=== PATIENT | female | born 1970 | race Caucasian/White ===

== ENCOUNTER 2017-12-09 18:48 | Emergency (ER) | payer OTHER ==
[~2017-12-09] VITALS: Ht 170.2 cm; Wt 129.8 kg
[~2017-12-09 18:48] MED LIST: ALBUTEROL SUL0.083 % IN; AMOXICILLIN875 MG PO; CYMBALTA60 MG PO; DEPO-MEDROL80 MG/ML IM; FLEXERIL OR; FLUARIX QUADRIV1 INJ IM; GLIPIZIDE5 MG PO; HYDROCHLORO25 MG/TAB PO; HYDROCHLOROT12.5 MG PO; HYDROCHLOROT25 MG PO; KEFLEX500 MG PO; LASIX 20 MG TAB20 MG PO; LASIX20 MG PO; LASIX40 MG PO; LEVAQUIN500 MG PO; LORTAB 5/3255 MG PO; METFORMIN1000 MG PO; NAPROSYN500 MG PO; NEXIUM20 M1 PO; NO HOME MEDS; PRAVASTATIN SOD10 MG PO; PROVENTIL HFA IN; ROCEPHIN 2 GM2 GM IV; TH ASPIRIN LOW81 MG PO; ULTRAM50 MG OR; VENTOLIN HFA IN; VERAPAMIL HCL180 M1 PO; VERAPAMIL HCL180 MG OR; VERAPAMIL180 M1 PO
[2017-12-09 19:48] LABS: BARBITURATES NEGATIVE (NEGATIVE); COCAINE NEGATIVE (NEGATIVE); METHADONE NEGATIVE (NEGATIVE); OXCYCODONE NEGATIVE (NEGATIVE); TETRAHYDROCANNABIONOL NEGATIVE (NEGATIVE); TRICYLIC ANTIDEPRESSANTS NEGATIVE (NEGATIVE)
[2017-12-09 22:39] VITALS: BP 148/94
== END 2017-12-09 21:25 | disposition left against medical advice (07) | DRG 552 ==
LOC: ED 18:48
PROVIDERS: Emergency Medicine
DX: M54.2 Cervicalgia (principal); Z91.19 Patient's noncompliance with other medical treatment and regimen; M25.561 Pain in right knee; M54.5 Low back pain; V47.4XXA Person boarding or alighting a car injured in collision with fixed or stationary object, initial encounter; Y92.414 Local residential or business street as the place of occurrence of the external cause

== ENCOUNTER 2019-07-19 10:05 | Emergency (ER) | payer BC ==
[~2019-07-19] VITALS: Ht 170.2 cm; Wt 115.0 kg
[2019-07-19] MEDS ORDERED: SUBOXONE1 MI1 SL (10:22)
[2019-07-19] MEDS ORDERED: CEPHALEXIN500 M1 PO (10:29)
[2019-07-19 10:37] VITALS: BP 148/70
== END 2019-07-19 10:43 | disposition home or self-care (01) | DRG 603 ==
LOC: ED 10:05
DX: L03.115 Cellulitis of right lower limb (principal); I11.0 Hypertensive heart disease with heart failure; I50.9 Heart failure, unspecified; E11.9 Type 2 diabetes mellitus without complications; J44.9 Chronic obstructive pulmonary disease, unspecified; F17.210 Nicotine dependence, cigarettes, uncomplicated

== ENCOUNTER 2022-05-07 09:15 | Emergency (ER) | payer BC ==
[~2022-05-07] VITALS: Ht 170.2 cm; Wt 122.2 kg
[~2022-05-07 09:15] MED LIST changes: +CEPHALEXIN500 M1 PO; +SUBOXONE1 MI1 SL
[2022-05-07 09:36] LABS: HEMATOCRIT 31.5 % (37.0-47.0); HEMOGLOBIN 9.9 g/dl (12.0-16.0); IMMATURE GRANULOCYTES 3.3 % (0.0-5.0); MEAN CELL VOLUME 88.7 fL CALC (80.0-100.0); MEAN CORPUSCULAR HGB 27.9 pG CALC (26.0-32.0); MEAN CORPUSCULAR HGB CONC 31.4 g/dL CAL (32.0-36.0); NEUT# 10.68 thou/uL (2.00-7.15); RED BLOOD COUNT 3.55 mill/uL (4.20-5.60); RED CELL DISTRI WIDTH 15.1 % (11.5-15.5)
[2022-05-07 10:25] LABS: CREATININE 1.3 mg/dL (0.5-1.0); POTASSIUM 4.1 mmol/l (3.5-5.1)
[2022-05-07 10:27] LABS: ALBUMIN 3.8 g/dL (3.2-5.0); BILIRUBIN, TOTAL 0.2 mg/dL (0.0-1.4); TOTAL PROTEIN 7.5 g/dL (6.3-8.2)
[2022-05-07 12:48] VITALS: BP 139/59
== END 2022-05-07 12:55 | disposition home or self-care (01) | DRG 603 ==
LOC: ED 09:15
DX: L03.115 Cellulitis of right lower limb (principal); I11.0 Hypertensive heart disease with heart failure; E11.40 Type 2 diabetes mellitus with diabetic neuropathy, unspecified; J44.9 Chronic obstructive pulmonary disease, unspecified; F17.210 Nicotine dependence, cigarettes, uncomplicated; Z79.84 Long term (current) use of oral hypoglycemic drugs

== ENCOUNTER 2023-07-07 13:09 | Emergency (ER) | payer BC ==
[~2023-07-07] VITALS: Ht 170.2 cm; Wt 125.0 kg
[2023-07-07 14:51] VITALS: BP 145/92
== END 2023-07-07 15:02 | disposition home or self-care (01) | DRG 316 ==
LOC: ED 13:09
DX: T82.838A Hemorrhage due to vascular prosthetic devices, implants and grafts, initial encounter (principal)

== ENCOUNTER 2024-06-29 14:35 | Inpatient (IN) | payer OTHER ==
[~2024-06-29] VITALS: Ht 167.6 cm; Wt 112.2 kg
[~2024-06-29 14:35] MED LIST changes: +BUPROPION HCL150 MG PO; +GABAPENTIN100 MG PO
[2024-06-29 14:51] VITALS: BP 192/65
[2024-06-29 15:29] LABS: BASO% 0.1 % (0-3); EOS% 1.5 % (0-8); HEMATOCRIT 35.8 % (37.0-47.0); HEMOGLOBIN 11.2 g/dl (12.0-16.0); IMMATURE GRANULOCYTES 0.6 % (0.0-5.0); LYMPH% 17.1 % (15-41); MEAN CELL VOLUME 86.3 fL CALC (80.0-100.0); MEAN CORPUSCULAR HGB CONC 31.3 g/dL CAL (32.0-36.0); MONO% 5.4 % (2-13); NEUT# 7.2 thou/uL (2.00-7.15); NEUT% 75.3 % (42-76); RED BLOOD COUNT 4.15 mill/uL (4.20-5.60); RED CELL DISTRI WIDTH 16.4 % (11.5-15.5)
[2024-06-29 15:39] VITALS: BP 172/62
[2024-06-29] MEDS ORDERED: ADVAIR DISK1 (15:46)
[2024-06-29] MEDS ORDERED: LISINOPRIL10 MG PO (15:46)
[2024-06-29] MEDS ORDERED: CLARIFY DOSE PO PRN (16:25)
[2024-06-29 16:37] LABS: CREATININE 1.2 mg/dL (0.5-1.0); POTASSIUM 4.1 mmol/l (3.5-5.1)
[2024-06-29] MEDS ORDERED: ACETAMINOPHEN 325 MG/TAB PO PRN (17:10)
[2024-06-29] MEDS ORDERED: MAGNESIUM HYDROXIDE 30 ML UDC PO PRN (17:10)
[2024-06-29] MEDS ORDERED: SODIUM CHLORIDE 0.9% 10 ML SYR IV PRN (17:25)
[2024-06-29] MEDS ORDERED: LORazepam 0.5 MG/TAB PO PRN (17:30)
[2024-06-29] MEDS ORDERED: ALUM & MAG HYDROX-SIMETHICONE 30 ML PO PRN (17:30)
[2024-06-29] MEDS ORDERED: Polyethylene Glycol 3350 17 GM/PKT PO PRN (17:30)
[2024-06-29] MEDS ORDERED: HYDROcodone 5 MG/Acetaminophen 325 MG/COMBO PO PRN (17:40)
[2024-06-29] MEDS ORDERED: hydrALAZINE HCL 20 MG/ML VIAL(1 ML) IV PRN (18:00)
[2024-06-29] MEDS ORDERED: CEFEPIME HYDROCHLORIDE 2 GM in SODIUM CHLORIDE 0.9% 100 ML IV SCH (18:00)
[2024-06-29] MEDS ORDERED: VANCOMYCIN HCL 1 GM/VIAL IV ONE (18:10)
[2024-06-29] MEDS ORDERED: SODIUM CHLORIDE 0.9% 500 ML IV ONE (18:14)
[2024-06-29 19:40] VITALS: BP 157/54
[2024-06-29] MEDS ORDERED: VANCOMYCIN HCL 2 GM in SODIUM CHLORIDE 0.9% 500 ML IV SCH (20:00)
[2024-06-29 20:49] LABS: URINE BILIRUBIN - DIPSTICK Negative (NEGATIVE); URINE BLOOD DIPSTICK Trace-lysed (NEGATIVE); URINE GLUCOSE - DIPSTICK Negative (NEGATIVE); URINE KETONE Negative (NEGATIVE); URINE LEUK ESTERASE Negative (NEGATIVE); URINE NITRITE - DIPSTICK Negative (Negative); URINE PH 5.5 (4.5-8.0); URINE PROTEIN - DIPSTICK Negative (NEG-TRACE); URINE SPECIFIC GRAVITY 1.015; URINE UROBILINOGEN - DIPSTICK 0.2 E.U./dL (0.2)
[2024-06-29 20:55] LABS: URINE COLOR Yellow
[2024-06-29] MEDS ORDERED: GABAPENTIN 300 MG/CAP PO SCH (21:00)
[2024-06-29] MEDS ORDERED: FLUTICASONE/SALMETEROL 250 MCG/50 MCG PER DOSE INH IN SCH (21:00)
[2024-06-29] MEDS ORDERED: DULOXETINE HCl 30 MG/CAP PO SCH (21:00)
[2024-06-29] MEDS ORDERED: ENOXAPARIN SODIUM 40 MG/0.4 ML SYR SC SCH (21:00)
[2024-06-29] MEDS ORDERED: SODIUM CHLORIDE 0.9% 10 ML SYR IV SCH (22:00)
[2024-06-30] VITALS (13 sets, daily range): BP systolic 119–164; BP diastolic 39–67
[2024-06-30 05:32] LABS: ALBUMIN 4.5 g/dL (3.2-5.0); BILIRUBIN, TOTAL 0.4 mg/dL (0.02-1.3); CREATININE 1.3 mg/dL (0.5-1.0); POTASSIUM 4.2 mmol/l (3.5-5.1); TOTAL PROTEIN 8.2 g/dL (6.3-8.2)
[2024-06-30] MEDS ORDERED: CEFEPIME HCL 2 GM/VIAL ONE (06:22)
[2024-06-30] MEDS ORDERED: SODIUM CHLORIDE 0.9% 100 ML IV ONE (06:24)
[2024-06-30] MEDS ORDERED: SODIUM CHLORIDE 0.9% 1,000 ML IV ONE ×2 (07:13→09:08)
[2024-06-30] MEDS ORDERED: FAMOTIDINE 10MG/ML 2ML SDV IV ONE (07:25)
[2024-06-30] MEDS ORDERED: hydroCHLOROthiazide 12.5 MG/CAP PO SCH (09:00)
[2024-06-30] MEDS ORDERED: buPROPion HCL 150 MG TAB SR PO SCH (09:00)
[2024-06-30] MEDS ORDERED: LISINOPRIL 10 MG/TAB PO SCH (09:00)
[2024-06-30] MEDS ORDERED: BUPIVACAINE HCL PF 0.5% 30 ML VIAL ONE (09:08)
[2024-06-30] MEDS ORDERED: SODIUM CHLORIDE 1,000 ML BTL IR ONE (09:08)
[2024-06-30] MEDS ORDERED: STERILE WATER FOR IRRIGATION 1,000 ML BTL IR ONE (09:08)
[2024-06-30] MEDS ORDERED: CEFEPIME HYDROCHLORIDE 2 GM in SODIUM CHLORIDE 0.9% 100 ML IV SCH (18:00)
[2024-06-30] MEDS ORDERED: VANCOMYCIN HCL 1,500 MG in SODIUM CHLORIDE 0.9% 470 ML IV SCH (20:00)
[2024-06-30] MEDS ORDERED: VANCOMYCIN HCL 1.5 GM in SODIUM CHLORIDE 0.9% 500 ML IV SCH (20:00)
[2024-07-01] VITALS (9 sets, daily range): BP systolic 108–177; BP diastolic 24–133
[2024-07-01 05:14] LABS: BASO% 0.1 % (0-3); EOS% 1.4 % (0-8); HEMATOCRIT 30.2 % (37.0-47.0); HEMOGLOBIN 9.6 g/dl (12.0-16.0); IMMATURE GRANULOCYTES 0.3 % (0.0-5.0); LYMPH% 18.1 % (15-41); MEAN CELL VOLUME 87.3 fL CALC (80.0-100.0); MEAN CORPUSCULAR HGB 27.7 pG CALC (26.0-32.0); MEAN CORPUSCULAR HGB CONC 31.8 g/dL CAL (32.0-36.0); NEUT# 5.62 thou/uL (2.00-7.15); NEUT% 71.1 % (42-76); RED BLOOD COUNT 3.46 mill/uL (4.20-5.60); RED CELL DISTRI WIDTH 16.8 % (11.5-15.5)
[2024-07-01 05:54] LABS: ALBUMIN 3.9 g/dL (3.2-5.0); BILIRUBIN, TOTAL 0.3 mg/dL (0.02-1.3); CREATININE 0.9 mg/dL (0.5-1.0); MAGNESIUM 1.9 mg/dL (1.6-2.3); POTASSIUM 4.2 mmol/l (3.5-5.1)
[2024-07-01] MEDS ORDERED: SODIUM CHLORIDE 0.9% 500 ML IV ONE (16:00)
[2024-07-01] MEDS ORDERED: SODIUM CHLORIDE 0.9% 500 ML IV SCH (16:30)
[2024-07-02 04:23] VITALS: BP 157/71
[2024-07-02 05:51] LABS: BASO% 0.1 % (0-3); EOS% 2.8 % (0-8); HEMATOCRIT 31.1 % (37.0-47.0); HEMOGLOBIN 9.7 g/dl (12.0-16.0); IMMATURE GRANULOCYTES 0.4 % (0.0-5.0); LYMPH% 24.5 % (15-41); MEAN CELL VOLUME 88.4 fL CALC (80.0-100.0); MEAN CORPUSCULAR HGB 27.6 pG CALC (26.0-32.0); MEAN CORPUSCULAR HGB CONC 31.2 g/dL CAL (32.0-36.0); MONO% 8.5 % (2-13); NEUT# 4.54 thou/uL (2.00-7.15); NEUT% 63.7 % (42-76); RED BLOOD COUNT 3.52 mill/uL (4.20-5.60); RED CELL DISTRI WIDTH 16.8 % (11.5-15.5)
[2024-07-02 06:13] LABS: ALBUMIN 4.1 g/dL (3.2-5.0); BILIRUBIN, TOTAL 0.2 mg/dL (0.02-1.3); CREATININE 1.1 mg/dL (0.5-1.0); MAGNESIUM 2.1 mg/dL (1.6-2.3); POTASSIUM 4.1 mmol/l (3.5-5.1); TOTAL PROTEIN 7.5 g/dL (6.3-8.2)
[2024-07-02 06:53] VITALS: BP 130/43
[2024-07-02 10:47] VITALS: BP 143/53
[2024-07-02] MEDS ORDERED: LEVOFLOXACIN250 M1 PO (11:08)
[2024-07-02] MEDS ORDERED: DAPTOMYCIN/SODI1 IN2 IV (11:09)
[2024-07-02] MEDS ORDERED: levoFLOXacin hemihydrate 250 MG/TAB PO SCH (12:00)
[2024-07-02] MEDS ORDERED: LEVOFLOXACIN750 MG PO (12:55)
== END 2024-07-02 12:56 | disposition home or self-care (01) | DRG 623 ==
LOC: MS2 14:35
PROVIDERS: Internal Medicine; Nurse Practitioner Family; ADMIT Student in an Organized Health Care Education/Training Program; ATTEND Student in an Organized Health Care Education/Training Program
PROC: 0HXMXZZ Transfer Right Foot Skin, External Approach (ICD-10-PCS; principal; 2024-06-30)
PROC: 0QBN0Z2 Excision of Right Metatarsal, Sesamoid Bone(s) 1st Toe, Open Approach (ICD-10-PCS; 2024-06-30)
PROC: 0JBQ0ZZ Excision of Right Foot Subcutaneous Tissue and Fascia, Open Approach (ICD-10-PCS; 2024-06-30)
PROC: 02HV33Z Insertion of Infusion Device into Superior Vena Cava, Percutaneous Approach (ICD-10-PCS; 2024-07-01)
PROC: B518ZZA Fluoroscopy of Superior Vena Cava, Guidance (ICD-10-PCS; 2024-07-01)
DX: E11.69 Type 2 diabetes mellitus with other specified complication (principal); I13.0 Hypertensive heart and chronic kidney disease with heart failure and stage 1 through stage 4 chronic kidney disease, or unspecified chronic kidney disease; M86.271 Subacute osteomyelitis, right ankle and foot; L97.419 Non-pressure chronic ulcer of right heel and midfoot with unspecified severity; L03.115 Cellulitis of right lower limb; E11.621 Type 2 diabetes mellitus with foot ulcer; E11.51 Type 2 diabetes mellitus with diabetic peripheral angiopathy without gangrene; E11.22 Type 2 diabetes mellitus with diabetic chronic kidney disease; I50.9 Heart failure, unspecified; N18.31 Chronic kidney disease, stage 3a; E11.42 Type 2 diabetes mellitus with diabetic polyneuropathy; J44.9 Chronic obstructive pulmonary disease, unspecified; Z89.411 Acquired absence of right great toe
CPT/HCPCS: J0692; J1650; J3370